=== PATIENT | male | born 1980 | race Caucasian/White ===

== ENCOUNTER 2021-02-06 07:45 | Outpatient (CLI) | payer OTHER, SELFPAY ==
--- NOTE | 2021-02-06 08:00 | MR_ITS ---
WS: [id number] MRI LUMBAR SPINE NONCONTRAST TECHNIQUE: Sagittal T1, T2 and STIR imaging. Axial T1 and T2 imaging. CLINICAL INFORMATION: INJURY OF LOW BACK COMPARISON: None. FINDINGS: Mild lumbar curve. No acute compression. No high-grade central canal stenosis. Mild disc bulging T11- T12 with a small annular fissure. L1-L2: Mild disc bulging. Slight effacement of ventral thecal sac. Spinal canal and foramen are paten t. L2-L3: No significant disc bulging. Mild facet arthropathy. Spinal canal and foramen are patent. L3-L4: Mild disc bulging with a tiny central protrusion. Slight impingement on the traversing L4 nerv e roots. Mild left and no significant right foraminal narrowing. Mild/moderate facet arthropathy. Imp ingement traversing left L4 nerve root. Mild central canal stenosis. L4-L5: Shallow right pericentral protrusion impinges the traversing right L5 nerve root in the subart icular recess. Spinal canal is patent. Mild right foraminal narrowing. Mild facet arthropathy. L5-S1: Shallow left pericentral disc protrusion with slight effacement of ventral thecal sac. Crowdin g of the left S1 nerve root. Mild right and no significant left foraminal narrowing. Visualized pelvic bony structures: Normal. Paravertebral soft tissues: Normal. MR/MR lumbar spine wo con* [id number] IMPRESSION: 1. Mild lumbar curve. No acute compression. No high-grade central canal stenos is. 2. Mild central canal stenosis L3-L4 with shallow central disc protrusion and slight impingement traversing left L4 nerve root. Mild left foraminal narrowing at this level. 3. Shallow right pericentral protrusion L4-5 impinges the traversing right L5 nerve root with mild right L4-5 foraminal narrowing. 4. Shallow left pericentral protrusion L5-S1 encroaches on the left S1 nerve r oot. Mild right L5-S1 foraminal narrowing. 5. Disc bulging T11-T12 small annular tear and slight effacement of the ventra l thecal sac.
== END 2021-02-06 07:46 | disposition home or self-care (01) ==
LOC: RADSHAW 07:48
PROVIDERS: PCP Nurse Practitioner Family; Visit Provider Nurse Practitioner Family
DX: S39.92XA Unspecified injury of lower back, initial encounter (principal); X58.XXXA Exposure to other specified factors, initial encounter; M48.061 Spinal stenosis, lumbar region without neurogenic claudication; M51.26 Other intervertebral disc displacement, lumbar region; M51.27 Other intervertebral disc displacement, lumbosacral region; M51.24 Other intervertebral disc displacement, thoracic region
CPT/HCPCS: 72148